=== PATIENT | female | born 1990 | race Caucasian/White ===

== ENCOUNTER 2019-03-07 21:26 | Inpatient (IN) | payer BC ==
[2019-03-07] MEDS ORDERED: BUTORPHANOL 1 MG/ML INJ IV PRN (21:29)
[2019-03-07] MEDS ORDERED: PROMETHAZINE 25 MG/ML VIAL IV PRN (21:30)
[2019-03-07] MEDS ORDERED: PROMETHAZINE 25 MG/ML VIAL IV ONE (21:44)
[2019-03-07] MEDS ORDERED: PROMETHAZINE 25 MG/ML VIAL ONE (21:46)
[2019-03-07] MEDS ORDERED: FENTANYL CITR 100 MCG/2 ML IV ONE (21:46)
[2019-03-07] MEDS ORDERED: ROPIVACAINE HCL 100 ML IV PRN (21:46)
[2019-03-07] MEDS ORDERED: ROPIVACAINE HCL 0.2% 20ML AMP SQ ONE (21:51)
--- NOTE | 2019-03-07 21:52 | P.PN ---
Date of Service: 03/07/19 Pt scheduled for induction on Saturday, H&P dictated. She came in earlier today, noted to be one cm with ctx, observed, dismissed, returns, now 4+ cm. Will admit for delivery.
[2019-03-07 21:54] LABS: RPR Titer ND
[2019-03-07 21:56] LABS: Absolute Lymphocytes (CBC) 1.5 K/uL (0.7-4.9); Absolute Monocytes 1.4 K/uL (0.1-1.3); Basophils % 0.2 % (0-1.3); Eosinophils % 0.1 % (0-4.4); Hematocrit 38.3 % (36.0-45.0); Lymphocytes % 8.4 % (15.3-44.8); MPV 8.9 fL (7.6-11.3); Monocytes % 7.9 % (3.3-12.3); RBC Red Blood Cell Count 4.04 M/uL (3.86-4.86)
[2019-03-07 21:56] LABS: Urine Appearance CLEAR; Urine Bilirubin NEGATIVE (NEG); Urine Blood NEGATIVE (NEG); Urine Color YELLOW; Urine Glucose NEGATIVE (NEG); Urine Protein NEGATIVE (NEG); Urine Specific Gravity <=1.005 (1.005-1.030); Urine Urobilinogen 0.2 mg/dL (0.2-1.0)
[2019-03-07 22:07] LABS: Urine Bacteria <20 /HPF (<20); Urine Culture Reflex Order NOT NEEDED; Urine RBC NONE SEEN /HPF (NONE SEEN)
[2019-03-07 22:44] VITALS: BMI 25.8
[2019-03-07] MEDS ORDERED: LIDOCAINE 1.5% W/EPI AMP 5 ML ONE (22:45)
[2019-03-07] MEDS ORDERED: CARBOPROST TROME 250 MCG/ML IM PRN (22:55)
[2019-03-07] MEDS ORDERED: Ringers Lactate 1,000 ML IV PRN (22:55)
[2019-03-07] MEDS ORDERED: METHYLERGONOVINE 0.2MG/ML AMP IM PRN (22:55)
[2019-03-07] MEDS ORDERED: OXYTOCIN/LR 20 UNIT/1,000 ML BAG IV SCH (23:00)
[2019-03-07] MEDS ORDERED: Ringers Lactate 1,000 ML IV SCH (23:00)
[2019-03-07] MEDS ORDERED: LIDOCAINE 1% MPF 30 ML VIAL SQ ONE (23:04)
[2019-03-08] MEDS ORDERED: OXYTOCIN/LR 20 UNIT/1,000 ML BAG IV ONE (00:10)
[2019-03-08] MEDS ORDERED: LIDOCAINE 1% MPF 30 ML VIAL ONE (00:11)
[2019-03-08] MEDS ORDERED: CARBOPROST TROME 250 MCG/ML IM ONE (00:11)
[2019-03-08] MEDS ORDERED: METHYLERGONOVINE 0.2MG/ML AMP IM ONE (00:11)
[2019-03-08] MEDS ORDERED: CARBOPROST TROME 250 MCG/ML IM PRN (03:04)
[2019-03-08] MEDS ORDERED: Oxycodone HCl/Acetaminophen 1 TAB TAB PO PRN (03:04)
[2019-03-08] MEDS ORDERED: METHYLERGONOVINE 0.2 MG TAB PO PRN (03:04)
[2019-03-08] MEDS ORDERED: METHYLERGONOVINE 0.2MG/ML AMP IM PRN (03:04)
[2019-03-08] MEDS ORDERED: ONDANSETRON 4 MG (ODT) TAB PO PRN (03:04)
--- NOTE | 2019-03-08 03:08 | P.BOP ---
Preoperative diagnosis: 39 week , labor Postoperative diagnosis: SCVD viable male Primary procedure: delivery Secondary procedure: right midline epis, with repair Specimen: <300ml Anesthesia: epidural Complications: None Transferred to: Other (273) Condition: Good
[2019-03-08] MEDS ORDERED: OXYTOCIN/LR 20 UNIT/1,000 ML BAG IV SCH (04:00)
[2019-03-08 08:16] VITALS: O2SAT 99
[2019-03-08] MEDS: IBUPROFEN 200 MG TAB PO PRN (18:24)
[2019-03-09 06:06] LABS: Absolute Lymphocytes (CBC) 2.1 K/uL (0.7-4.9); Absolute Monocytes 1.1 K/uL (0.1-1.3); Absolute Neutrophil 8.3 K/uL (1.8-8.0); Basophils % 0.5 % (0-1.3); Hematocrit 33.1 % (36.0-45.0); Lymphocytes % 17.7 % (15.3-44.8); Monocytes % 9.2 % (3.3-12.3); RBC Red Blood Cell Count 3.51 M/uL (3.86-4.86)
[2019-03-09] MEDS: IBUPROFEN 200 MG TAB PO PRN (07:15)
[2019-03-09 07:25] VITALS: BP 118/70; TEMP 97.2
--- NOTE | 2019-03-09 09:07 | PREOPHP ---
Date of Admission: 03/07/2019 History Of Present Illness: Ms. Lim is a 29-year-old female, 1, para 0, at 39+ weeks gestation. She is admitted for elective induction of labor secondary to term with favorable cervix. She has been followed by me during this without complications other than repetitive yeast infections. Past Medical History: Please see record. Family History: Please see record. Review of Systems: She reports no recent cough, cold, fever, or chills. No recent nausea or vomiting. She denies any b reast knots or lumps. She denies any bowel or bladder issues. Infant has been active. She has been having more contractions recently. Physical Examination: General: Reveals pleasant female, in no apparent distress. Neck: Supple without adenopathy or thyromegaly. Lungs: Clear. Cardiac: Regular rate and rhythm without murmurs. Breasts: Not examined. Abdomen: Estimated weight of 7+ pounds. Pelvic: Cervix noted to be approximately 1 cm, 60% vertex, about 0 station. Cervix midposition. Extremities: No cyanosis, clubbing, or edema. Impression: Term , favorable cervix. The patient will be admitted for induction on Saturday. AMBAR/ASIYA Voice ID: [id number]
--- NOTE | 2019-03-09 09:10 | DN ---
Surgeon: Tu Orr MD Ms. Lim is a 29-year-old female, 1, para 0, at 39+ weeks gestation, admit tye in active labor. She had been observed earlier in the day with contractions, but no cervical renzo nge from 1 cm. She now presents 4+ to 5 cm dilated in active labor. After placement of epidural cat heter, rupture of membrane, she had a first stage of labor of approximately 10 hours with second stag e of labor of 1 hour and 16 minutes. She delivered by spontaneous controlled vaginal delivery a 7 po unds 1 ounce male infant, 9 and 10 over a right midline episiotomy secondary to variable type o f decelerations. Infant was delivered vertex OA. The cord was clamped and cut. After delayed cord clamping, infant was placed on mother's upper abdomen. Cord blood was obtained. Placenta was sponta neously expelled and appeared to be intact. Intrauterine exam revealed no retained placental fragmen ts. Episiotomy was repaired in the usual fashion with 3-0 Vicryl suture. She received good benefit from epidural catheters, received 1 mg of Stadol and 12.5 mg of Phenergan IV for analgesia prior to p lacement of epidural catheter. AMBAR/ASIYA Voice ID: [id number] Report ID: [id number]
--- NOTE | 2019-03-09 18:31 | DS ---
Date of Discharge: 03/09/2019 Final Hospital Discharge Diagnosis: Term , delivered. Complications: None. Procedures: Placement of epidural catheter, artificial rupture membranes, Pitocin augmentation of la bor, right midline episiotomy with repair, spontaneous controlled vaginal delivery of viable male inf ant. Hospital Course: The patient is a 29-year-old female, 1, para 0, at term a dmitted in active labor. She had an uneventful labor and delivery of a 7 pounds 1 ounce male , 9 and 10 over a right midline episiotomy with epidural anesthesia. Lab work obtained included an admission hemoglobin and hematocrit of 12.9 and 38.3 with 18,000 white count. Because of probabl e prolonged latent phase of labor repeat first day revealed hemoglobin and hematocrit of 1 1.4, 33.1 with 11,700 white blood cell count with a drop in neutrophil percentage also. She was dism issed to continue taking her iron and vitamins, to be seen back in my office in 1 week with prescription for Tylenol No. 3 #10 for pain relief, to continue with the usual post vaginal delivery activity restrictions. AMBAR/ASIYA Voice ID: [id number] Report ID: [id number]
[2019-03-09 22:30] LABS: RPR (Rapid Plasma Reagin) NON-REACT (NON-REACT)
[2019-03-11 18:10] LABS: HBsAG Nonreactive (Nonreactive)
== END 2019-03-09 09:05 | disposition home or self-care (01) | DRG 807 ==
LOC: 2ND-WC 21:26
PROVIDERS: ADMIT Specialist; ATTEND Specialist
PROC: 10E0XZZ Delivery of Products of Conception, External Approach (ICD-10-PCS; principal; 2019-03-08)
PROC: 10907ZC Drainage of Amniotic Fluid, Therapeutic from Products of Conception, Via Natural or Artificial Opening (ICD-10-PCS; 2019-03-08)
PROC: 0W8NXZZ Division of Female Perineum, External Approach (ICD-10-PCS; 2019-03-08)
DX: O80 Encounter for full-term uncomplicated delivery (principal); Z37.0 Single live birth; Z3A.39 39 weeks gestation of pregnancy
CPT/HCPCS: 36415; 81001; 85025; 86592; 86901; 87340; J0595; J2001; J2210; J2550; J2590; J2795; J3010